=== PATIENT | male | born 1995 | race Caucasian/White ===

== ENCOUNTER 2022-10-21 04:00 | Emergency (ER) | payer BC, SELFPAY ==
[2022-10-21 04:01] VITALS: BP 113/78; PULSE 70; RESP 17; TEMP 36.6; O2SAT 98
[2022-10-21 05:02] VITALS: RESP 17
[2022-10-21] MEDS: predniSONE 20 mg Tablet 60 MG PO (05:02)
[2022-10-21] MEDS: oxyCODONE-APAP 5-325 mg Tablet 2 TAB PO (05:02)
--- NOTE | 2022-10-21 19:39 | W.ED.EXTPRO ---
HPI - Extremity Problem General: Chief complaint: Extremity Injury, Lower Stated complaint: left foot pain Time Seen by Provider: 10/21/22 04:36 Source: patient History of Present Illness: 26-year-old male with a history of gout he tells me. He presents with 2 days of pain, redness, and warmth to his left great toe MCP. No fever. MD Complaint: joint swelling and joint pain Onset (ago): day(s) Pain Consistency: constant Location: left and toe Quality: stabbing and aching Radiation: none Relieving factors: immobilization Exacerbating factors: range of motion and weight bearing Associated symptoms: Reports rash (mild redness); Deny chest pain or fever(s) Review of Systems Const: Denies: fever(s) Card: Denies: chest pain Resp: Denies: dyspnea GI: Denies: vomiting Skin/Breast: Reports: rash (mild redness) Physical Exam Const: COMMON NORMALS: no acute distress GENERAL APPEARANCE: cooperative; not ill appearing and not frail appearing HENMT: COMMON NORMALS: normocephalic, atraumatic and Normal external nose present HEAD & SCALP: normocephalic and atraumatic FACE & SINUS: normal facial exam and face symmetric NOSE: Normal external nose present Eye: COMMON NORMALS: Equal, round and reactive pupils present and EOMs intact bilaterally PUPIL: Yes Equal, round and reactive pupils present Neck/C-Spine: GENERAL: Yes trachea midline Chest: CHEST: Yes Symmetrical chest wall rise Resp: COMMON NORMALS: normal respiratory effort, No retractions, No use of accessory muscles and clear to auscultation bilaterally AUSCULTATION: clear to auscultation bilaterally Cardio: COMMON NORMALS: regular rate and regular rhythm RATE: regular rate RHYTHM: regular rhythm GI: COMMON NORMALS: Normal to inspection, nondistended, normoactive bowel sounds present Extremity: COMMON NORMALS: no pedal edema NARRATIVE EXTREMITY EXAM: Exam the left lower extremity reveals tenderness over the MCP of the great toe on the left. There is mild redness and warmth. No deformity. Neuro: BRENDA COMA SCALE: document GCS findings Brenda coma scale eye opening: Spontaneous Brenda coma scale verbal response: Orientated [place] coma scale motor response: Obey commands [place] coma scale total score: 15 SENSORY EXAM: Yes extremities (intact) Psych: COMMON NORMALS: speech normal SPEECH: Yes normal speech Course Vital Signs: Vital signs: Vital Signs Temperature 97.9 F 10/21/22 04:01 Pulse Rate 70 10/21/22 04:01 Respiratory Rate 17 10/21/22 05:02 Blood Pressure 113/78 10/21/22 04:01 Pulse Oximetry 98 10/21/22 04:01 Oxygen Delivery Me thod 10/21/22 04:01 MDM - Extremity (Nontraumatic) Medical Decision Making Patient findings 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 We will treat with steroids. He has had good luck with this type of treatment in the past. He was encouraged for primary care follow-up, as this is at least his third outbreak, and could benefit from preventative medication. Discharge Plan Discharge Patient Disposition: Home Clinical Impression: Gout involving toe of left foot Condition: Stable Prescriptions: Continued prednisone 20 mg tablet 40 mg PO DAILY 5 Days Qty: 10 0RF No Action fluoxetine [Prozac] 20 mg capsule 20 mg PO DAILY Discharge Orders: Discharge ED (Routine); Ordered 10/21/22 Ordered By: Corey Frazier Referrals: Britney Haas DO [Primary Care Provider] - 4-7 days Patient Instructions: Gout (ED), Opioid Safety, Pain Management Activity Restrictions/Additional Instructions: Medications as directed. Ice and elevation can help as well. Return for fever, worsening pain or swelling despite treatment, any other concerning symptoms. Coding Level of Care Code ED Pot Operator for Suzanne Arango
== END 2022-10-21 05:15 | disposition home or self-care (01) ==
PROVIDERS: Emergency Provider Emergency Medicine; PCP Family Medicine
DX: M10.072 Idiopathic gout, left ankle and foot (principal); M10.9 Gout, unspecified
CPT/HCPCS: 99283; J7512

== ENCOUNTER 2022-12-19 01:14 | Emergency (ER) | payer BC, SELFPAY ==
[2022-12-19 01:17] VITALS: BP 131/76; PULSE 91; RESP 16; TEMP 36.8; O2SAT 95; BMI 30.7
[2022-12-19 01:43] LABS: Basophils % 0.2 %; Eosinophils # 0.1 10^3/uL (0.0-0.8); Eosinophils % 0.9 %; Hemoglobin 17.1 g/dL (11.7-16.6); Lymphocytes # 0.7 10^3/uL (0.8-4.8); Lymphocytes % 7.4 %; Mean Corpuscular HGB Conc 33.5 g/dL (30.0-36.0); Mean Corpuscular Hemoglobin 29.1 pg (28.0-34.0); Mean Corpuscular Volume 86.9 fl (80-94); Mean Platelet Volume 12.2 fL (7.4-10.4); Monocytes # 0.3 10^3/uL (0.2-0.9); Monocytes % 3.7 %; Neutrophils # 7.92 10^3/uL (1.8-7.7); Neutrophils % 87.6 %; Nucleated Red Blood Cells % 0 %; Platelet Count 161 10^3/cmm (130-400); Red Blood Count 5.87 10^6/uL (4.1-5.3); Red Cell Distribution Width 12.9 % (12.1-15.1)
[2022-12-19] MEDS: ondansetron 2 mg/ML SDV 2 mL 4 MG IVP (01:46)
[2022-12-19] MEDS: sodium chloride 0.9% 1,000 ML 999 ML IV (01:46)
[2022-12-19 02:04] LABS: Alanine Aminotransferase 19 U/L (0-41); Albumin Level 5.3 g/dL (3.5-5.2); Alkaline Phosphatase 74 U/L (40-130); Anion Gap 17.7 (5-19); Aspartate Amino Transferase 23 U/L (0-40); Blood Urea Nitrogen 12 mg/dL (6-20); Calcium 9.6 mg/dL (8.5-10.5); Carbon Dioxide 26 mmol/L (22-29); Chloride 102 mmol/L (98-107); Creatinine Clr Calc Pharmacy 169.8965; Globulin 2.6 g/dL (1.3-4.6); Glomerular Filtration Rate 117.8 mL/min (90-130); Glucose 121 mg/dL (65-115); Lipase 29 U/L (13-60); Osmolality Calculated 295 mOsm/kg (285-295); Potassium 3.7 mmol/L (3.5-5.1); Sodium 142 mmol/L (136-145); Total Bilirubin 1.3 mg/dL (0.15-1.2); Total Protein 7.9 g/dL (6.6-8.7)
--- NOTE | 2022-12-19 02:05 | ED_ITS ---
HPI - Nausea/Vomiting/Diarrhea General: Chief complaint: Nausea/Vomiting/Diarrhea Stated complaint: D\V Time Seen by Provider: 12/19/22 01:21 History of Present Illness: Patient is in for nausea, vomiting, diarrhea since 6 PM on December 18. Patient denies eating anything abnormal. He denies sick contacts. He denies fever but does report some chills. He reports that he has had more than 10 diarrhea stools and vomited more than 6 times. He states that he is unable to keep anything down at this time. He is mostly concerned of dehydration because he had recent gastric sleeve surgery in [facility] in August. He denies any abdominal pain at this time except for slight cramping right before diarrhea stool. Associated nausea: Yes Associated symtoms: Reports nausea; Denies chest pain, dysuria, headache(s) or palpitations Review of Systems Const: Reports: chills; Denies: fever(s) or body aches Card: Denies: chest pain or palpitations Resp: Denies: dyspnea, productive cough or non-productive cough GI: Reports: nausea, vomiting, diarrhea and GI cramping; Denies: abdominal pain, hematemesis, constipation, rectal pain or hematochezia : Denies: flank pain, difficulty urinating, dysuria, urinary frequency, u rinary urgency or urinary hesitancy Neuro: Denies: headache(s) Physical Exam Const: COMMON NORMALS: no acute distress, patient oriented x3 and alert Neck/C-Spine: COMMON NORMALS: no JVD Resp: COMMON NORMALS: normal respiratory effort, No use of accessory muscles and clear to auscultation bilaterally AUSCULTATION: clear to auscultation bilaterally Cardio: COMMON NORMALS: no JVD, regular rate, regular rhythm, S1 normal heart sound present, S2 normal heart sound present and No murmurs present (Cardio) RATE: regular rate RHYTHM: regular rhythm HEART SOUNDS: S1 normal heart sound present and S2 normal heart sound present GI: COMMON NORMALS: Normal to inspection, nondistended, normoactive bowel sounds present, Soft to palpation and non-tender PALPATION: Yes Soft to palpation : COMMON NORMALS: Yes no CVA tenderness BLADDER/KIDNEY EXAM: Yes no CVA tenderness Back/Pelvis: COMMON NORMALS: no CVA tenderness Neuro: COMMON NORMALS: patient oriented x3 SENSORIUM/ORIENTATION: Yes alert Course Vital Signs: Vital signs: Vital Signs Temperature 98.3 F 12/19/22 01:17 Pulse Rate 91 12/19/22 01:17 Respiratory Rate 16 12/19/22 01:17 Blood Pressure 131/76 12/19/22 01:17 Pulse Oximetry 95 12/19/22 01:17 Oxygen Delivery Me thod 12/19/22 01:17 MDM - Nausea/Vomiting/Diarrhea Medical Decision Making Consider gastroenteritis, foodborne illness, dehydration Patient's labs do not indicate acute bacterial infection. Anion gap is 17.7. Patient is not vomiting in ER room. He states that he has had 2 diarrhea stools since being at the ER. UA dip Given the patient is afebrile, has a normal white blood cell count, has only had illness for the past 6 hours I discussed risk versus benefits of a CT scan with the patient. He is agreeable with conservative treatment and foregoing CT scan at this time. IV fluids administered and patient is given Zofran to help with nausea. Discussed dietary measures such as the brat diet to help with diarrhea. Advised him of diarrhea and vomiting are persisting beyond 24 hours despite Zofran or if he is unable to keep fluids down or worsening in any way to return to the ER. Follow-up with primary care provider as needed. Patient is agreeable with plan of care. All questions were answered to satisfaction. Lab Data 12/19/22 01:32 12/19/22 01:32 Laboratory Results WBC 9.0 10^3/uL (4.0-10.0) 12/19/22 01:32 RBC 5.87 10^6/uL (4.1-5.3) H 12/19/22 01:32 Hgb 17.1 g/dL (11.7-16.6) H 12/19/22 01:32 Hct 51.0 % (42.0-52.0) 12/19/22 01:32 MCV 86.9 fl (80-94) 12/19/22 01:32 MCH 29.1 pg (28.0-34.0) 12/19/22 01:32 MCHC 33.5 g/dL (30.0-36.0) 12/19/22 01:32 RDW 12.9 % (12.1-15.1) 12/19/22 01:32 Plt Count 161 10^3/cmm (130-400) 12/19/22 01:32 MPV 12.2 fL (7.4-10.4) H 12/19/22 01:32 Neut % (Auto) 87.6 % 12/19/22 01:32 Lymph % (Auto) 7.4 % 12/19/22 01:32 [place] % (Auto) 3.7 % 12/19/22 01:32 Eos % (Auto) 0.9 % 12/19/22 01:32 Baso % (Auto) 0.2 % 12/19/22 01:32 Neut # (Auto) 7.92 10^3/uL (1.8-7.7) H 12/19/22 01:32 Lymph # (Auto) 0.7 10^3/uL (0.8-4.8) L 12/19/22 01:32 [place] # (Auto) 0.3 10^3/uL (0.2-0.9) 12/19/22 01:32 Eos # (Auto) 0.1 10^3/uL (0.0-0.8) 12/19/22 01:32 Baso # (Auto) 0.0 10^3/uL (0.0-0.1) 12/19/22 01:32 Nucleated RBC % (auto) 0 % 12/19/22 01:32 Nucleated RBCs # 0.0 /100WBC 12/19/22 01:32 Sodium 142 mmol/L (136-145) 12/19/22 01:32 Potassium 3.7 mmol/L (3.5-5.1) 12/19/22 01:32 Chloride 102 mmol/L (98-107) 12/19/22 01:32 Carbon Dioxide 26 mmol/L (22-29) 12/19/22 01:32 Anion Gap 17.7 (5-19) 12/19/22 01:32 BUN 12 mg/dL (6-20) 12/19/22 01:32 Creatinine 0.8 mg/dL (0.7-1.2) 12/19/22 01:32 GFR Calculation 117.8 mL/min (90-130) 12/19/22 01:32 Glucose 121 mg/dL (65-115) H 12/19/22 01:32 Calculated Osmolality 295 mOsm/kg (285-295) 12/19/22 01:32 Calcium 9.6 mg/dL (8.5-10.5) 12/19/22 01:32 Total Bilirubin 1.3 mg/dL (0.15-1.2) H 12/19/22 01:32 AST 23 U/L (0-40) 12/19/22 01:32 ALT 19 U/L (0-41) 12/19/22 01:32 Alkaline Phosphatase 74 U/L (40-130) 12/19/22 01:32 Total Protein 7.9 g/dL (6.6-8.7) 12/19/22 01:32 Albumin 5.3 g/dL (3.5-5.2) H 12/19/22 01:32 Globulin 2.6 g/dL (1.3-4.6) 12/19/22 01:32 Lipase 29 U/L (13-60) 12/19/22 01:32 Urine Color Dark yellow (Yellow) 12/19/22 02:23 Urine Appearance Clear (CLEAR) 12/19/22 02:23 Urine pH 6 (5-7) 12/19/22 02:23 Ur Specific [place] 1.030 (1.005-1.030) 12/19/22 02:23 Urine Protein 1+ (Negative) H 12/19/22 02:23 Urine Glucose (UA) Norm (Normal) 12/19/22 02:23 Urine Ketones 3+ (Negative) H 12/19/22 02:23 Urine Blood Neg (Negative) 12/19/22 02:23 Urine Nitrate Negative (Negative) 12/19/22 02:23 Urine Bilirubin 1+ (Negative) H 12/19/22 02:23 Urine Urobilinogen 1 mg/dL (Negative) H 12/19/22 02:23 Ur Leukocyte Esterase Negative (Negative) 12/19/22 02:23 Urine RBC 0-4 /hpf (0-2) H 12/19/22 02:23 Urine WBC None /hpf (0-5) 12/19/22 02:23 Ur Squamous Epith Cells 0-4 /hpf (0-5) H 12/19/22 02:23 Calcium Oxalate Crystal 5-10 /hpf H 12/19/22 02:23 Amorphous Sediment Not Reportable 12/19/22 02:23 Urine Bacteria None /hpf (NONE) 12/19/22 02:23 Urine Mucus 2+ /hpf 12/19/22 02:23 Discharge Plan Discharge Patient Disposition: Home Clinical Impression: Gastroenteritis, Dehydration Condition: Stable Prescriptions: New ondansetron 4 mg tablet,disintegrating 4 mg PO Q8H PRN (Reason: nausea and vomiting) 3 Days Qty: 9 0RF No Action fluoxetine [Prozac] 20 mg capsule 20 mg PO DAILY prednisone 20 mg tablet 40 mg PO DAILY 5 Days Qty: 10 0RF Discharge Orders: Discharge ED (Routine); Ordered 12/19/22 Ordered By: Samina Eller Referrals: Britney Haas DO [Primary Care Provider] - Discharge Diet: As Directed Discharge Activity: Increase activity as tolerated Patient Instructions: Gastroenteritis (ED), Acute Nausea and Vomiting (ED) Activity Restrictions/Additional Instructions: Use Zofran as needed to help with nausea. Make sure that you are staying well- hydrated. I would recommend a clear liquid diet over the next 24 hours then increase as tolerated to a bland diet. Follow-up with primary care provider as needed. Return to the ER as needed for new or worsening symptoms including, but not limited to inability to keep fluids down despite Zofran, persisting diarrhea over the next 12 hours, bloody stools or emesis/vomit, development of fever or abdominal pain. Coding Level of Care Code ED Back Stayer for Suzanne Fwd Exam Detailed
[2022-12-19 03:00] LABS: Add Urine Microscopic? YES; Bilirubin Urine 1+ (Negative); Blood Urine Neg (Negative); Glucose Urine UA Norm (Normal); Ketones Urine 3+ (Negative); Leukocyte Esterase Urine Negative (Negative); Mucus Urine 2+ /hpf; Nitrate Urine Negative (Negative); Protein Urine 1+ (Negative); RBC Urine 0-4 /hpf (0-2); Squamous Epithelial Cell Urine 0-4 /hpf (0-5); Urine Appearance Clear (CLEAR); Urine Color Dark Yellow (Yellow); Urobilinogen Urine 1 mg/dL (Negative); pH Urine 6 (5-7)
[2022-12-19 03:01] LABS: Add Urine Culture? No
[2022-12-19] MEDS: ondansetron 4 MG Tablet PO (03:17)
[2022-12-19] MEDS: loperamide 2 mg Capsule 4 MG PO (03:17)
== END 2022-12-19 03:24 | disposition home or self-care (01) ==
PROVIDERS: Emergency Provider Nurse Practitioner Family; PCP Family Medicine
DX: K52.9 Noninfective gastroenteritis and colitis, unspecified (principal); E86.0 Dehydration
CPT/HCPCS: 80053; 81001; 83690; 85025; 96361; 96374; 99284; J2405; J7030; Q0162

== ENCOUNTER 2023-07-03 12:16 | Emergency (ER) | payer BC, SELFPAY ==
[2023-07-03 12:26] VITALS: BP 103/66; PULSE 56; RESP 17; TEMP 36.4; O2SAT 100; BMI 23.7
[2023-07-03 13:03] LABS: Basophils % 0.7 %; Eosinophils # 0.1 10^3/uL (0.0-0.8); Eosinophils % 1.4 %; Hematocrit 41.4 % (42.0-52.0); Hemoglobin 13.6 g/dL (11.7-16.6); Lymphocytes % 35.9 %; Mean Corpuscular HGB Conc 32.9 g/dL (30.0-36.0); Mean Corpuscular Hemoglobin 29.2 pg (28.0-34.0); Mean Corpuscular Volume 88.8 fl (80-94); Monocytes # 0.4 10^3/uL (0.2-0.9); Monocytes % 6.4 %; Neutrophils % 55.4 %; Nucleated Red Blood Cells % 0 %; Platelet Count 157 10^3/cmm (130-400); Red Blood Count 4.66 10^6/uL (4.1-5.3); Red Cell Distribution Width 12.9 % (12.1-15.1); White Blood Count 5.6 10^3/uL (4.0-10.0)
[2023-07-03 13:30] LABS: Alanine Aminotransferase 21 U/L (0-41); Albumin Level 4.1 g/dL (3.5-5.2); Alkaline Phosphatase 66 U/L (40-130); Anion Gap 11.1 (5-19); Aspartate Amino Transferase 22 U/L (0-40); Blood Urea Nitrogen 10 mg/dL (6-20); Calcium 8.7 mg/dL (8.5-10.5); Carbon Dioxide 31 mmol/L (22-29); Chloride 101 mmol/L (98-107); Globulin 2.1 g/dL (1.3-4.6); Glomerular Filtration Rate 137.4 mL/min (90-130); Glucose 73 mg/dL (65-115); Osmolality Calculated 286 mOsm/kg (285-295); Potassium 4.1 mmol/L (3.5-5.1); Sodium 139 mmol/L (136-145); Total Bilirubin 0.8 mg/dL (0.15-1.2); Total Protein 6.2 g/dL (6.6-8.7)
[2023-07-03 13:32] LABS: Acetaminophen < 5.0 ug/mL (10-30); Alcohol Level < 10 mg/dL (0-10)
[2023-07-03 14:34] LABS: Add Urine Microscopic? NO; Charge for UA Resulting for Rev
[2023-07-03 14:46] LABS: Urine Appearance Clear (CLEAR); Urine Color Yellow (Yellow)
[2023-07-03 14:47] LABS: Bilirubin Urine Neg (Negative); Blood Urine Neg (Negative); Glucose Urine UA Norm (Normal); Ketones Urine Negative (Negative); Leukocyte Esterase Urine Negative (Negative); Nitrate Urine Negative (Negative); Protein Urine Neg (Negative); Sulfosalicylic Acid Urine Negative (Negative); Urobilinogen Urine Norm (Negative); pH Urine 8 (5-7)
[2023-07-03 14:55] LABS: Amphetamines Screen Urine Negative (Negative); Barbiturates Screen Urine Negative (Negative); Benzodiazepines Screen Urine Negative (Negative); Cocaine Screen Urine Negative (Negative); Opiate Screen Urine Negative (Negative); PCP Screen Urine Negative (Negative); THC Screen Urine Negative (Negative)
--- NOTE | 2023-07-03 15:05 | W.ED.PSYCHS ---
HPI - Psych General: Chief Complaint: Psychiatric Symptoms Stated Complaint: MHE Time Seen by Provider: 07/03/23 12:45 History of Present Illness: Presents to the ER with complaints of run out of his medicine is ago and thinks is having withdrawals but just wants to be checked. Patient's says he has been more tearful having outbursts, ups and downs and more aggression. This only been going on for the last couple days since he has been out of his medicine. He was stabilized on his medicine. They called the clinic and they said that this may be withdrawals but they wanted him checked out and they could not make it to the clinic with decided to come here for further evaluation. Patient denies any suicidal or homicidal ideation. Review of Systems General: Reports: 10 or more systems reviewed and unremarkable except in HPI and below Physical Exam Const: COMMON NORMALS: no acute distress, average body habitus, patient oriented x3, no limitations, healthy appearing, alert and well nourished HENMT: COMMON NORMALS: normocephalic, atraumatic, hearing grossly normal bilaterally, external ears normal, Normal external nose present and moist oral mucous membranes HEAD & SCALP: normocephalic and atraumatic NOSE: Normal external nose present EXTERNAL EAR: Yes external ears normal Eye: COMMON NORMALS: Equal, round and reactive pupils present, EOMs intact bilaterally, conjunctivae normal and no scleral icterus CONJUNCTIVA: Yes conjunctivae normal PUPIL: Yes Equal, round and reactive pupils present Neck/C-Spine: COMMON NORMALS: full ROM, no lymphadenopathy, supple, no meningeal signs, no JVD and Thyroid normal THYROID: Thyroid normal Chest: COMMONS NORMALS: normal inspection of the chest and normal palpation of entire chest wall Resp: COMMON NORMALS: normal respiratory effort, No retractions, No use of accessory muscles and clear to auscultation bilaterally AUSCULTATION: clear to auscultation bilaterally Cardio: COMMON NORMALS: no JVD, regular rate, regular rhythm, S1 normal heart sound present, S2 normal heart sound present, No gallops present (Cardio), No clicks present (Cardio), No murmurs present (Cardio) and No rub (Cardio) RATE: regular rate RHYTHM: regular rhythm HEART SOUNDS: S1 normal heart sound present and S2 normal heart sound present GI: COMMON NORMALS: Normal to inspection, nondistended, normoactive bowel sounds present, Soft to palpation, non-tender, No hepatosplenomegaly present and no masses PALPATION: Yes Soft to palpation and Yes No hepatosplenomegaly present : COMMON NORMALS: Yes no CVA tenderness BLADDER/KIDNEY EXAM: Yes no CVA tenderness Back/Pelvis: COMMON NORMALS: no CVA tenderness Neuro: COMMON NORMALS: patient oriented x3 SENSORIUM/ORIENTATION: Yes alert MENINGEAL SIGNS: Yes no meningeal signs Course Vital Signs: Vital signs: Vital Signs Temperature 97.5 F L 07/03/23 12:26 Pulse Rate 56 L 07/03/23 12:26 Respiratory Rate 17 07/03/23 12:26 Blood Pressure 103/66 07/03/23 12:26 Pulse Oximetry 100 07/03/23 12:26 Oxygen Delivery Me thod Room Air 07/03/23 12:26 MDM - Psych Medical Decision Making Patient ran out of his Abilify 3 days ago and has been having withdrawal symptoms since then. Patient and his wanted to come here to be checked out to make for sure that this was the only thing going on and not something else. Lab work was obtained physical exam was performed all of essentially which was benign. Patient will be restarted back on his 2 mg of Abilify and told the symptoms should dissipate over the next several days. Patient is to follow-up with his PCP in approximately 7 days or sooner as needed. Medical Records I reviewed the patient's medical records. Lab Data I reviewed the patient's lab results. 07/03/23 12:54 07/03/23 12:54 Laboratory Results WBC 5.6 10^3/uL (4.0-10.0) 07/03/23 12:54 RBC 4.66 10^6/uL (4.1-5.3) 07/03/23 12:54 Hgb 13.6 g/dL (11.7-16.6) 07/03/23 12:54 Hct 41.4 % (42.0-52.0) L 07/03/23 12:54 MCV 88.8 fl (80-94) 07/03/23 12:54 MCH 29.2 pg (28.0-34.0) 07/03/23 12:54 MCHC 32.9 g/dL (30.0-36.0) 07/03/23 12:54 RDW 12.9 % (12.1-15.1) 07/03/23 12:54 Plt Count 157 10^3/cmm (130-400) 07/03/23 12:54 MPV 11.0 fL (7.4-10.4) H 07/03/23 12:54 Neut % (Auto) 55.4 % 07/03/23 12:54 Lymph % (Auto) 35.9 % 07/03/23 12:54 [place] % (Auto) 6.4 % 07/03/23 12:54 Eos % (Auto) 1.4 % 07/03/23 12:54 Baso % (Auto) 0.7 % 07/03/23 12:54 Neut # (Auto) 3.10 10^3/uL (1.8-7.7) 07/03/23 12:54 Lymph # (Auto) 2.0 10^3/uL (0.8-4.8) 07/03/23 12:54 [place] # (Auto) 0.4 10^3/uL (0.2-0.9) 07/03/23 12:54 Eos # (Auto) 0.1 10^3/uL (0.0-0.8) 07/03/23 12:54 Baso # (Auto) 0.0 10^3/uL (0.0-0.1) 07/03/23 12:54 Nucleated RBC % (auto) 0 % 07/03/23 12:54 Nucleated RBCs # 0.0 /100WBC 07/03/23 12:54 Sodium 139 mmol/L (136-145) 07/03/23 12:54 Potassium 4.1 mmol/L (3.5-5.1) 07/03/23 12:54 Chloride 101 mmol/L (98-107) 07/03/23 12:54 Carbon Dioxide 31 mmol/L (22-29) H 07/03/23 12:54 Anion Gap 11.1 (5-19) 07/03/23 12:54 BUN 10 mg/dL (6-20) 07/03/23 12:54 Creatinine 0.7 mg/dL (0.7-1.2) 07/03/23 12:54 GFR Calculation 137.4 mL/min (90-130) H 07/03/23 12:54 Glucose 73 mg/dL (65-115) 07/03/23 12:54 Calculated Osmolality 286 mOsm/kg (285-295) 07/03/23 12:54 Calcium 8.7 mg/dL (8.5-10.5) 07/03/23 12:54 Total Bilirubin 0.8 mg/dL (0.15-1.2) 07/03/23 12:54 AST 22 U/L (0-40) 07/03/23 12:54 ALT 21 U/L (0-41) 07/03/23 12:54 Alkaline Phosphatase 66 U/L (40-130) 07/03/23 12:54 Total Protein 6.2 g/dL (6.6-8.7) L 07/03/23 12:54 Albumin 4.1 g/dL (3.5-5.2) 07/03/23 12:54 Globulin 2.1 g/dL (1.3-4.6) 07/03/23 12:54 Urine Color Yellow (Yellow) 07/03/23 14:28 Urine Appearance Clear (CLEAR) 07/03/23 14:28 Urine pH 8 (5-7) H 07/03/23 14:28 Ur Specific [place] 1.010 (1.005-1.030) 07/03/23 14:28 Urine Protein Neg (Negative) 07/03/23 14:28 Urine Glucose (UA) Norm (Normal) 07/03/23 14:28 Urine Ketones Negative (Negative) 07/03/23 14:28 Urine Blood Neg (Negative) 07/03/23 14:28 Urine Nitrate Negative (Negative) 07/03/23 14:28 Urine Bilirubin Neg (Negative) 07/03/23 14:28 Prot Sulfosalicylic Acd Negative (Negative) 07/03/23 14:28 Urine Urobilinogen Norm mg/dL (Negative) 07/03/23 14:28 Ur Leukocyte Esterase Negative (Negative) 07/03/23 14:28 Salicylates 10.0 mg/dL (3-10) 07/03/23 12:54 Urine Opiates Screen Negative ng/mL (Negative) 07/03/23 14:28 Acetaminophen < 5.0 ug/mL (10-30) L 07/03/23 12:54 Ur Barbiturates Screen Negative ng/mL (Negative) 07/03/23 14:28 Ur Phencyclidine Scrn Negative ng/mL (Negative) 07/03/23 14:28 Ur Amphetamines Screen Negative ng/mL (Negative) 07/03/23 14:28 U Benzodiazepines Scrn Negative ng/mL (Negative) 07/03/23 14:28 Urine Cocaine Screen Negative ng/mL (Negative) 07/03/23 14:28 U Marijuana (THC) Screen Negative ng/mL (Negative) 07/03/23 14:28 Ethyl Alcohol < 10 mg/dL (0-10) 07/03/23 12:54 Discharge Plan Discharge Patient Disposition: Home Clinical Impression: Acute drug withdrawal syndrome Qualifiers: Complication of substance-induced condition: uncomplicated Qualified Code(s): F19.930 - Other psychoactive substance use, unspecified with withdrawal, uncomplicated Condition: Stable Prescriptions: No Action paroxetine HCl 20 mg tablet 20 mg PO DAILY aripiprazole 2 mg tablet 2 mg PO DAILY Multi-Vitamin Tablet 1 tab PO DAILY Discharge Orders: Discharge ED (Routine); Ordered 07/03/23 Ordered By: Garbiel Montano Referrals: Britney Haas DO [Primary Care Provider] - 7-10 days Patient Instructions: Medication Safety Activity Restrictions/Additional Instructions: Please take all your medicine as directed. Please do not run out of your medicine without consulting your physician. Please follow-up with your physician in approximately 7 days for further evaluation and treatment. Coding Level of Care Code ED Explosive Ordnance Specialist for Suzanne Arango
[2023-07-03 15:24] VITALS: BP 180/99; PULSE 78; RESP 18; O2SAT 97
== END 2023-07-03 15:25 | disposition home or self-care (01) ==
PROVIDERS: Emergency Provider Emergency Medicine; PCP Family Medicine
DX: F19.930 Other psychoactive substance use, unspecified with withdrawal, uncomplicated (principal); Z91.138 Patient's unintentional underdosing of medication regimen for other reason
CPT/HCPCS: 36415; 80053; 80306; 80307; 81003; 85025; 99283

== ENCOUNTER → 2024-08-26 19:23 | Outpatient (BNVA) | payer OTHER, SELFPAY | PROVIDERS: PCP Family Medicine; Visit Provider Family Medicine | DX: J02.9 Acute pharyngitis, unspecified (principal) | CPT/HCPCS: 87880 ==

== ENCOUNTER → 2025-04-15 08:07 | Outpatient (BNVA) | payer MEDICAID, SELFPAY | PROVIDERS: PCP Family Medicine; Visit Provider Podiatrist Foot & Ankle Surgery | DX: M79.671 Pain in right foot (principal); M79.672 Pain in left foot; M77.41 Metatarsalgia, right foot; M77.42 Metatarsalgia, left foot | CPT/HCPCS: 73630; 99203 ==